=== PATIENT | female | born 1960 | race Caucasian/White ===

== ENCOUNTER 2020-06-25 09:43 | Outpatient (REF) | payer BC, SELFPAY ==
--- NOTE | ~2020-06-25 | MM_ITS ---
EXAMINATION: MM SCREENING DIGITAL BREAST TOMOSYNTHESIS, BILATERAL CLINICAL INFORMATION: Screening. Asymptomatic. The lifetime risk of breast cancer based on the Tyrer-Cuzick Model is 10%. COMPARISON: Mammography: 08/13/2016, 05/02/2015 TECHNIQUE: Digital breast tomosynthesis is performed in both the craniocaudal and mediolateral oblique views along with computer-aided detection (CAD). Synthesized 2D images are generated from the tomosynthesis. FINDINGS: The breasts are heterogeneously dense, which may obscure small masses (ACR BI-RADS breast composition Category c). There are no significant masses, abnormal calcifications, or other abnormalities. Parenchymal pattern is similar to prior exams. No significant changes. MM/MM tomosynthesis screening BI IMPRESSION: No significant changes from prior studies. ASSESSMENT: BI-RADS 1: Negative RECOMMENDATION: Routine annual mammography screening. This patient's information was entered into a reminder system with a target due date for their next mammogram.
== END 2020-06-25 09:44 | disposition home or self-care (01) ==
LOC: HO.MAMMO 09:43
PROVIDERS: PCP Internal Medicine; Visit Provider Internal Medicine
DX: Z12.31 Encounter for screening mammogram for malignant neoplasm of breast (principal)
CPT/HCPCS: 77063; 77067

== ENCOUNTER 2020-12-14 10:20 | Outpatient (REF) | payer BC, SELFPAY ==
[2020-12-14 10:23] LABS: MANUAL DIFF FLAG NO
[2020-12-14 10:55] LABS: Basophils Percent Auto 0.7 % (0-2); Eosinophils Absolute Auto 0.1 X10*3/uL (0.0-0.4); Eosinophils Percent Auto 1.5 % (0-4); Hematocrit 39.9 % (37-47); Hemoglobin 12.6 g/dl (12.0-16.0); Imm Gran Abs Auto 0.02 X10*3/uL (0.00-0.03); Imm Gran Pct Auto 0.4 % (0.0-0.4); Lymphocytes Absolute Auto 1.8 X10*3/uL (1.2-4.9); Lymphocytes Percent Auto 33.5 % (20-40); Mean Corpuscular HGB Conc 31.6 g/dl (31.0-35.0); Mean Corpuscular Hemoglobin 29.9 pg (27.0-33.0); Mean Corpuscular Volume 94.8 fL (80-98); Mean Platelet Volume 10.9 fL (9.4-12.3); Monocytes Absolute Auto 0.5 X10*3/uL (0.1-1.2); Monocytes Percent Auto 8.5 % (2-11); Neutrophils Percent Auto 55.4 % (45-73); Platelet Count 255 X10*3/uL (160-400); Red Blood Count 4.21 X10*6/uL (4.20-5.50); Red Cell Distribution Width 12.2 % (11.0-16.0); White Blood Count 5.4 X10*3/uL (4.8-10.8)
[2020-12-14 10:57] LABS: Estimated Average Glucose 97 mg/dL
[2020-12-14 11:03] LABS: Alanine Aminotransferase 20 U/L (0-31); Albumin Level 4.5 g/dL (3.5-5.0); Alkaline Phosphatase 55 U/L (39-117); Anion Gap 13 (12-20); Aspartate Amino Transferase 18 U/L (5-31); Bilirubin Total 0.5 mg/dL (0.0-1.0); Blood Urea Nitrogen 17 mg/dL (9-16); Calcium 8.9 mg/dL (8.4-10.2); Carbon Dioxide 26 mmol/L (22-29); Chloride 107 mmol/L (96-108); Cholesterol 215 mg/dL; Estimated Glomerular Filt Rate > 60; Glucose Fasting 99 mg/dL (60-99); Glucose Urine UA NEG (NEG); HDL Cholesterol 48 mg/dL; LDL Cholesterol Calculated 149 mg/dl; Leukocyte Esterase Urine NEG (NEG); Nitrite Urine NEG (NEG); Potassium 4.2 mmol/L (3.3-5.1); Sodium 142 mmol/L (135-145); Specific Gravity - Urine >= 1.030 (1.005-1.025); Total Protein 6.9 g/dL (6.5-8.0); Triglycerides 94 mg/dL; Urine Blood 1+ (NEG); Urine Ketones NEG (NEG); Urine Protein NEG (NEG-TRACE)
[2020-12-14 11:09] LABS: Appearance Urine CLEAR; Color Urine YELLOW
[2020-12-14 11:21] LABS: Bacteria Urine 1+ /LPF; RBC Urine 0-2 /HPF (0); Squamous Epithelial Cell Urine 1+ /LPF; WBC Urine 0 /HPF (0-4)
[2020-12-14 11:26] LABS: Vitamin D 25-OH Total 26.3 ng/mL (>30)
== END 2020-12-14 10:21 | disposition home or self-care (01) ==
LOC: HO.LNP 10:20
PROVIDERS: Visit Provider Internal Medicine
DX: Z00.00 Encounter for general adult medical examination without abnormal findings (principal); R73.03 Prediabetes; E55.9 Vitamin D deficiency, unspecified
CPT/HCPCS: 80053; 80061; 81001; 81003; 82306; 83036; 85025

== ENCOUNTER 2021-01-04 14:00 | Outpatient (REF) | payer BC, SELFPAY | END 2021-01-04 14:01 | disposition home or self-care (01) | LOC: HO.LNP 14:00 | PROVIDERS: Visit Provider Internal Medicine | DX: R39.15 Urgency of urination (principal) | CPT/HCPCS: 87086; 87088; 87186 ==

== ENCOUNTER 2021-04-14 10:53 | Outpatient (REF) | payer MEDICAID, SELFPAY ==
[2021-04-14 11:15] LABS: MANUAL DIFF FLAG NO
[2021-04-14 12:04] LABS: Basophils Percent Auto 0.9 % (0-2); Eosinophils Percent Auto 0.9 % (0-4); Hematocrit 39.8 % (37.0-47.0); Hemoglobin 12.8 g/dl (12.0-16.0); Imm Gran Abs Auto 0.01 X10*3/uL (0.00-0.03); Imm Gran Pct Auto 0.2 % (0.0-0.4); Lymphocytes Absolute Auto 1.3 X10*3/uL (1.2-4.9); Lymphocytes Percent Auto 29.2 % (20-40); Mean Corpuscular HGB Conc 32.2 g/dl (31.0-35.0); Mean Corpuscular Hemoglobin 30.3 pg (27.0-33.0); Mean Corpuscular Volume 94.3 fL (80.0-98.0); Mean Platelet Volume 10.9 fL (9.4-12.3); Monocytes Absolute Auto 0.4 X10*3/uL (0.1-1.2); Monocytes Percent Auto 8.6 % (2-11); Neutrophils Absolute Auto 2.8 x10*3/uL (2.0-8.3); Neutrophils Percent Auto 60.2 % (45-73); Platelet Count 243 X10*3/uL (160-400); Red Blood Count 4.22 X10*6/uL (4.20-5.50); Red Cell Distribution Width 12.7 % (11.0-16.0); White Blood Count 4.6 X10*3/uL (4.8-10.8)
[2021-04-14 12:27] LABS: Alanine Aminotransferase 16 U/L (0-31); Albumin Level 4.6 g/dL (3.5-5.0); Alkaline Phosphatase 51 U/L (39-117); Amylase 40 U/L (28-100); Anion Gap 10 (12-20); Aspartate Amino Transferase 16 U/L (5-31); Bilirubin Direct 0.2 mg/dL (0.0-0.5); Bilirubin Total 0.7 mg/dL (0.0-1.0); Blood Urea Nitrogen 14 mg/dL (9-16); C Reactive Protein 0.08 mg/dL (< or = 0.50); Calcium 9.8 mg/dL (8.4-10.2); Carbon Dioxide 29 mmol/L (22-29); Chloride 106 mmol/L (96-108); Estimated Glomerular Filt Rate > 60; Glucose Random 83 mg/dL (60-115); Lipase 33 U/L (8-78); Potassium 4.4 mmol/L (3.3-5.1); Sodium 141 mmol/L (135-145); Total Protein 7.2 g/dL (6.5-8.0)
[2021-04-14 12:47] LABS: Erythrocyte Sedimentation Rate 9 MM/HR (0-20)
[2021-04-14 13:16] LABS: Appearance Urine CLEAR; Color Urine YELLOW; Glucose Urine UA NEG (NEG); Leukocyte Esterase Urine NEG (NEG); Nitrite Urine NEG (NEG); UACC Culture Trigger NO; Urine Blood 1+ (NEG); Urine Ketones NEG (NEG); Urine Protein NEG (NEG-TRACE)
[2021-04-14 14:47] LABS: Squamous Epithelial Cell Urine 1+ /LPF; WBC Urine 0-2 /HPF (0-4)
[2021-04-20 01:31] LABS: Immunoglobulin A 206 mg/dL (70-320)
[2021-04-20 12:51] LABS: Gliadin Deamidated IgA Ab <1.0 U/mL; Gliadin Deamidated IgG Ab <1.0 U/mL; Transglutaminase Ab IgG <1.0 U/mL; Transglutaminase IgA <1.0 U/mL
[2021-04-21 10:42] LABS: Endomysial IgA Antibody Negative (Negative)
== END 2021-04-14 10:54 | disposition home or self-care (01) ==
LOC: HO.LAB 10:53
PROVIDERS: PCP Internal Medicine; Visit Provider Internal Medicine
DX: R10.31 Right lower quadrant pain (principal); K58.8 Other irritable bowel syndrome; N39.0 Urinary tract infection, site not specified
CPT/HCPCS: 36415; 80048; 80076; 81001; 82150; 82784; 83516; 83690; 85025; 85652; 86140; 86255; 86256; 87086

== ENCOUNTER 2021-06-30 11:11 | Outpatient (REF) | payer OTHER, SELFPAY ==
--- NOTE | ~2021-06-30 | US_ITS ---
EXAMINATION: US PELVIS CLINICAL INFORMATION: Right lower quadrant and pelvic pain COMPARISON: None TECHNIQUE: Ultrasound of the pelvis is performed using both transabdominal and transvaginal transducers along with Doppler. Transvaginal imaging is performed due to inadequate visualization transabdominally. FINDINGS: Uterus: The uterus is anteverted and measures 5.2 x 2.6 x 4.4 cm. The double wall endometrial thickness is 2.3 mm. There is a 0.7 x 0.3 x 0.7 cm echogenic structure within the endometrium surrounded by fluid. The uterus is smooth in contour and has normal myometrial echogenicity. No visible fibroid. Adnexa: The right ovary is not visualized due to bowel gas. Left ovary measures 1.7 x 0.8 x 0.8 cm. Volume: 0.6 mL. US/US pelvic and transvaginal IMPRESSION: 0.7 x 0.2 x 0.7 cm echogenic structure within the endometrium surrounded by fluid, that may represent a polyp versus submucosal fibroid. Recommend gynecological consult if not already performed. The right ovary is not visualized due to overlying bowel gas. Normal left ovary.
== END 2021-06-30 11:12 | disposition home or self-care (01) ==
LOC: HO.US 11:11
PROVIDERS: Visit Provider Internal Medicine
DX: R10.31 Right lower quadrant pain (principal); R10.2 Pelvic and perineal pain
CPT/HCPCS: 76830; 76856

== ENCOUNTER 2021-12-30 09:47 | Outpatient (REF) | payer OTHER, SELFPAY ==
[2021-12-30 10:05] LABS: MANUAL DIFF FLAG NO
[2021-12-30 10:27] LABS: Basophils Percent Auto 0.6 % (0-2); Eosinophils Absolute Auto 0.1 X10*3/uL (0.0-0.4); Hematocrit 39.6 % (37.0-47.0); Hemoglobin 12.9 g/dl (12.0-16.0); Imm Gran Abs Auto 0.01 X10*3/uL (0.00-0.03); Imm Gran Pct Auto 0.2 % (0.0-0.4); Lymphocytes Absolute Auto 1.7 X10*3/uL (1.2-4.9); Lymphocytes Percent Auto 34.6 % (20-40); Mean Corpuscular HGB Conc 32.6 g/dl (31.0-35.0); Mean Corpuscular Hemoglobin 30.1 pg (27.0-33.0); Mean Corpuscular Volume 92.5 fL (80.0-98.0); Mean Platelet Volume 10.4 fL (9.4-12.3); Monocytes Absolute Auto 0.4 X10*3/uL (0.1-1.2); Monocytes Percent Auto 7.9 % (2-11); Neutrophils Absolute Auto 2.7 x10*3/uL (2.0-8.3); Neutrophils Percent Auto 55.7 % (45-73); Platelet Count 201 X10*3/uL (160-400); Red Blood Count 4.28 X10*6/uL (4.20-5.50); Red Cell Distribution Width 12.2 % (11.0-16.0); White Blood Count 4.8 X10*3/uL (4.8-10.8)
[2021-12-30 11:26] LABS: Alanine Aminotransferase 16 U/L (0-31); Albumin Level 4.5 g/dL (3.5-5.0); Alkaline Phosphatase 54 U/L (39-117); Anion Gap 17 (12-20); Aspartate Amino Transferase 17 U/L (5-31); Bilirubin Total 0.6 mg/dL (0.0-1.0); Blood Urea Nitrogen 12 mg/dL (9-16); Calcium 8.7 mg/dL (8.4-10.2); Carbon Dioxide 24 mmol/L (22-29); Chloride 104 mmol/L (96-108); Cholesterol 203 mg/dL; Estimated Glomerular Filt Rate > 60; Glucose Random 98 mg/dL (60-115); HDL Cholesterol 48 mg/dL; LDL Cholesterol Calculated 135 mg/dl; Potassium 4.5 mmol/L (3.3-5.1); Sodium 140 mmol/L (135-145); Total Protein 7.1 g/dL (6.5-8.0); Triglycerides 103 mg/dL
[2021-12-30 11:31] LABS: Thyroid Stimulating Hormone 0.67 uIU/mL (0.32-4.0)
== END 2021-12-30 09:48 | disposition home or self-care (01) ==
LOC: HO.LAB 09:47
PROVIDERS: PCP Internal Medicine; Visit Provider Internal Medicine
DX: Z00.00 Encounter for general adult medical examination without abnormal findings (principal); I10 Essential (primary) hypertension; K58.9 Irritable bowel syndrome, unspecified; Z80.3 Family history of malignant neoplasm of breast
CPT/HCPCS: 36415; 80053; 80061; 82306; 84443; 85025

== ENCOUNTER 2022-06-28 08:55 | Outpatient (REF) | payer OTHER, SELFPAY ==
[2022-06-28 10:05] LABS: Cholesterol 206 mg/dL; HDL Cholesterol 46 mg/dL; LDL Cholesterol Calculated 136 mg/dl; Triglycerides 121 mg/dL
== END 2022-06-28 08:56 | disposition home or self-care (01) ==
LOC: HO.LAB 08:55
PROVIDERS: PCP Internal Medicine; Visit Provider Internal Medicine
DX: E78.00 Pure hypercholesterolemia, unspecified (principal); I10 Essential (primary) hypertension
CPT/HCPCS: 36415; 80061

== ENCOUNTER 2022-08-30 15:09 | Outpatient (REF) | payer OTHER, SELFPAY ==
--- NOTE | ~2022-08-30 | MM_ITS ---
EXAMINATION: MM SCREENING DIGITAL BREAST TOMOSYNTHESIS, BILATERAL CLINICAL INFORMATION: Screening. Asymptomatic. The lifetime risk of breast cancer based on the Tyrer-Cuzick Model is 9%. COMPARISON: Mammography: 06/25/2020, 08/13/2016, 05/02/2015 TECHNIQUE: Digital breast tomosynthesis is performed in both the craniocaudal and mediolateral oblique views along with computer-aided detection (CAD). Synthesized 2D images are generated from the tomosynthesis. FINDINGS: The breasts are heterogeneously dense, which may obscure small masses (ACR BI-RADS breast composition Category c). Breast tissue composition borders on average fibroglandular. No architectural abnormality or developing density or significant change from prior studies. There are no significant masses, abnormal calcifications, or other abnormalities. MM/MM tomosynthesis screening BI IMPRESSION: No mammographic evidence of malignancy. ASSESSMENT: BI-RADS 1: Negative RECOMMENDATION: Routine annual mammography screening. This patient's information was entered into a reminder system with a target due date for their next mammogram.
== END 2022-08-30 15:10 | disposition home or self-care (01) ==
LOC: HO.MAMMO 15:09
PROVIDERS: PCP Internal Medicine; Visit Provider Internal Medicine
DX: Z12.31 Encounter for screening mammogram for malignant neoplasm of breast (principal)
CPT/HCPCS: 77063; 77067

== ENCOUNTER 2022-09-30 07:01 | Outpatient (REF) | payer OTHER, SELFPAY ==
[2022-09-30 07:13] LABS: MANUAL DIFF FLAG NO
[2022-09-30 07:46] LABS: Basophils Percent Auto 0.6 % (0-2); Eosinophils Absolute Auto 0.1 X10*3/uL (0.0-0.4); Eosinophils Percent Auto 1.6 % (0-4); Hematocrit 39.2 % (37.0-47.0); Hemoglobin 12.6 g/dl (12.0-16.0); Imm Gran Abs Auto 0.02 X10*3/uL (0.00-0.03); Imm Gran Pct Auto 0.4 % (0.0-0.4); Lymphocytes Absolute Auto 1.5 X10*3/uL (1.2-4.9); Lymphocytes Percent Auto 30.2 % (20-40); Mean Corpuscular HGB Conc 32.1 g/dl (31.0-35.0); Mean Corpuscular Hemoglobin 30.4 pg (27.0-33.0); Mean Corpuscular Volume 94.7 fL (80.0-98.0); Mean Platelet Volume 10.4 fL (9.4-12.3); Monocytes Absolute Auto 0.4 X10*3/uL (0.1-1.2); Monocytes Percent Auto 8.7 % (2-11); Neutrophils Percent Auto 58.5 % (45-73); Platelet Count 222 X10*3/uL (160-400); Red Blood Count 4.14 X10*6/uL (4.20-5.50); Red Cell Distribution Width 12.3 % (11.0-16.0); White Blood Count 5.1 X10*3/uL (4.8-10.8)
[2022-09-30 08:14] LABS: Alanine Aminotransferase 26 U/L (0-31); Albumin Level 4.2 g/dL (3.5-5.0); Alkaline Phosphatase 54 U/L (39-117); Anion Gap 10 (12-20); Aspartate Amino Transferase 22 U/L (5-31); Bilirubin Total 0.5 mg/dL (0.0-1.0); Blood Urea Nitrogen 15 mg/dL (9-16); Calcium 8.8 mg/dL (8.4-10.2); Carbon Dioxide 27 mmol/L (22-29); Chloride 109 mmol/L (96-108); Cholesterol 134 mg/dL; Estimated Glomerular Filt Rate > 60; Glucose Random 97 mg/dL (60-115); HDL Cholesterol 50 mg/dL; LDL Cholesterol Calculated 71 mg/dl; Potassium 4.5 mmol/L (3.3-5.1); Sodium 141 mmol/L (135-145); Total Protein 6.5 g/dL (6.5-8.0); Triglycerides 68 mg/dL
== END 2022-09-30 07:02 | disposition home or self-care (01) ==
LOC: HO.LAB 07:01
PROVIDERS: PCP Internal Medicine; Visit Provider Internal Medicine
DX: I10 Essential (primary) hypertension (principal); E78.00 Pure hypercholesterolemia, unspecified
CPT/HCPCS: 36415; 80053; 80061; 85025; 86141

== ENCOUNTER 2022-11-04 11:08 | Outpatient (REF) | payer OTHER, SELFPAY ==
[2022-11-04 16:24] LABS: Urine Cytology See Pathology rpt
== END 2022-11-04 11:09 | disposition home or self-care (01) ==
LOC: HO.LAB 11:08
PROVIDERS: Visit Provider Urology
DX: R31.29 Other microscopic hematuria (principal)
CPT/HCPCS: 88112

== ENCOUNTER 2022-11-04 11:08 | Outpatient (AMB) | payer OTHER, SELFPAY ==
--- NOTE | 2022-11-04 11:21 | MHC.OFFVIS ---
Intake Intake Visit Reasons: micro hematuria Intake Note: New patient is present for microscopic hematuria Allergy: Sulfa antibiotics Blood Thinners: None Patient also states that she did in past have a lot of bladder pain. Spoke with her PCP , PCP states indicates IC. Patient started to limit her coffee intake which helped her manage her symptoms Allergies Sulfa (Sulfonamide Antibiotics) Allergy (Mild, Verified 12/21/22 13:05) rash HPI HPI Comments History of Present Illness Details Elizabeth is a pleasant female. She is a patient of Dr. Motta. She seen for the following urologic conditions - microscopic hematuria - interstitial cystitis Initial evaluation Plan for imaging with cystoscopy Has never seen blood Microscopic hematuria Prior evaluation a number of years ago Imaging - no recent Cystoscopy - no recent PFSH Medical History Colitis High cholesterol HTN (hypertension) Microscopic hematuria Surgical History History of tonsillectomy Review of Systems Const Denies chills and Denies fever(s) Card Reports no additional complaints and Denies syncope Resp Denies cough GI Denies abdominal pain and Denies heartburn Reports as per HPI and Denies change in libido Neuro Denies syncope Psych Denies change in libido Endo Denies change in libido Physical Exam Const General: cooperative, healthy appearing, comfortable and no acute distress Orientation/consciousness: patient oriented x3 HEENT Face and sinus: Yes normal facial exam Mouth: moist mucous membranes Neck Neck: Yes normal visual inspection, Yes full ROM and Yes trachea midline Chest Chest palpation & inspection: normal inspection of the chest Resp Effort & Inspection: normal respiratory effort, able to speak in complete sentences and no respiratory distress GI Inspection: Yes normal to inspection Back/Spine/Pelvis Cervical Spine: normal cervical lordosis Thoracic/Lumbar Spine: thoracic and lumbar spine normal to inspection Skin General skin exam: no rashes or lesions noted Neuro General: patient oriented x3, gait normal, tone normal and moves all extremities Extrem General: Yes normal to inspection and Yes capillary refill normal Results AMB Urinalysis, Automated UA Leukoctes 0 Ashley/uL Last Edit by KAMILLA Conte on 11/04/22 11:38 UA Nitrite Negative Last Edit by KAMILLA Conte on 11/04/22 11:38 UA Urobilinogen 0.2 mg/dL Last Edit by Leonor Wilkinson, RMA on 11/04/22 11:38 UA Protein 0 mg/dL Last Edit by Leonor Wilkinson, A on 11/04/22 11:38 UA pH 6.0 Last Edit by Leonor Wilkinson, RMA on 11/04/22 11:38 UA Blood 80 Israel/uL Last Edit by Leonor Wilkinson, RMA on 11/04/22 11:38 UA Specific Doss 1.010 Last Edit by Leonor Wilkinson, RMA on 11/04/22 11:38 UA Ketone Negative Last Edit by Leonor Wilkinson, RMA on 11/04/22 11:38 UA Bilirubin 0 mg/dL Last Edit by Leonor Wilkinson, A on 11/04/22 11:38 UA Glucose 0 mg/dL Last Edit by Leonor Wilkinson, A on 11/04/22 11:38 Results Reviewed Results Reviewed: Laboratory Last Values Urine pH (Auto) 6.0 11/04/22 11:27 Specific Doss (Auto) 1.010 11/04/22 11:27 Urine Protein (Auto) 0 mg/dL 11/04/22 11:27 Glucose (UA)(Auto) 0 mg/dL 11/04/22 11:27 Urine Ketones (Auto) Negative 11/04/22 11:27 Urine Blood (Auto) 80 [place]/uL 11/04/22 11:27 Urine Nitrite (Auto) Negative 11/04/22 11:27 Urine Bilirubin (Auto) 0 mg/dL 11/04/22 11:27 Urine Urobilinogen (Auto) 0.2 mg/dL 11/04/22 11:27 Leukocyte Esterase (Auto) 0 Ashley/uL 11/04/22 11:27 Assessment & Plan Assessment & Plan (1) Microscopic hematuria: Code(s): R31.29 - Other microscopic hematuria Plan Follow-up cystoscopy Orders: Orders AMB Urinalysis Automated 11/04/22 Z13.9 - Encounter for screening, unspecified US renal BI 1 Month N20.0 - Calculus of kidney, R31.29 - Other microscopic hematuria Urine Cytology 11/04/22 R31.29 - Other microscopic hematuria Patient Instructions: Imaging studies, laboratory and physical exam results were discussed and reviewed in detail. No major barriers to patient understanding were identified. An opportunity to ask questions regarding the treatment plan was provided. All questions were answered. The patient expressed understanding and agreement with the above treatment plan. The patient is aware they should contact our office by phone for worsening of their current condition or the appearance of new urologic symptoms. Compliance is encouraged with any medications and followup testing that is ordered. It is a privilege to participate in the urologic care of your patient. If you have any questions or concerns regarding treatment for the above conditions, or other urologic issues, please do not hesitate to contact me. The office telephone contact is [phone]. This note is constructed using voice recognition software. While every effort has been made to ensure accuracy associate professor of library media errors may have been included. Yours sincerely, Dr Bobby Gentile MD, [facility] - Urology Providers of Expert, Compassionate Care for the Genitourinary System Coding Level of Care Code New Pt Level 3 (48372) Diagnoses Microscopic hematuria R31.29
== END 2022-11-04 12:05 | disposition home or self-care (01) ==
PROVIDERS: Visit Provider Urology
DX: R31.29 Other microscopic hematuria (principal)
CPT/HCPCS: 99203

== ENCOUNTER 2022-11-24 08:57 | Outpatient (REF) | payer OTHER, SELFPAY ==
--- NOTE | ~2022-11-24 | US_ITS ---
EXAMINATION: US RETROPERITONEAL LIMITED (RENAL ONLY) CLINICAL INFORMATION: Calculus of kidney. COMPARISON: None available. TECHNIQUE: Real-time imaging of the kidneys. FINDINGS: RIGHT KIDNEY: 10.7 x 3.9 x 4.9 cm (SAG x AP x TRV). The kidney is normal in size, contour, and echogenicity. Renal cortical thickness is normal. No calculi or focal parenchymal lesions. No hydronephrosis. LEFT KIDNEY: 10.9 x 3.8 x 4.6 cm (SAG x AP x TRV). The kidney is normal in size, contour, and echogenicity. Renal cortical thickness is normal. No calculi or focal parenchymal lesions. No hydronephrosis. US/US renal BI IMPRESSION: Unremarkable study.
== END 2022-11-24 08:58 | disposition home or self-care (01) ==
LOC: HO.US 08:57
PROVIDERS: PCP Internal Medicine; Visit Provider Urology
DX: N20.0 Calculus of kidney (principal); R31.29 Other microscopic hematuria
CPT/HCPCS: 76775

== ENCOUNTER 2022-12-21 12:57 | Outpatient (AMB) | payer OTHER, SELFPAY ==
--- NOTE | 2022-12-21 13:05 | MHC.OFFVIS ---
Intake Intake Visit Reasons: 6W Cysto/US(set) Intake Note: Patient is present for Cystoscopy Urology Med: none Antibiotic Allergy: Sulfa Blood Thinner:None [facility]: [facility] C[facility] used during Procedure LOT#:[id number] EXP: 09/15/24 Allergies Sulfa (Sulfonamide Antibiotics) Allergy (Mild, Verified 12/21/22 13:05) rash HPI HPI Comments History of Present Illness Details Elizabeth is a pleasant female. She is a patient of Dr. Motta. She seen for the following urologic conditions - microscopic hematuria - interstitial cystitis Cystoscopy - touchdown area irritation, trigonal irritation Discussed food triggers Background IBS Recommend FODMAP [place] Discussed topical estrogen Microscopic hematuria Prior evaluation a number of years ago Imaging - 12/14 renal ultrasound negative Cystoscopy - 12/14 touchdown area irritation PFSH Medical History Colitis High cholesterol HTN (hypertension) Microscopic hematuria Surgical History History of tonsillectomy Review of Systems Const Denies chills and Denies fever(s) Card Reports no additional complaints and Denies syncope Resp Denies cough GI Denies abdominal pain and Denies heartburn Reports as per HPI and Denies change in libido Neuro Denies syncope Psych Denies change in libido Endo Denies change in libido Physical Exam Const General: cooperative, healthy appearing, comfortable and no acute distress Orientation/consciousness: patient oriented x3 HEENT Face and sinus: Yes normal facial exam Mouth: moist mucous membranes Neck Neck: Yes normal visual inspection, Yes full ROM and Yes trachea midline Chest Chest palpation & inspection: normal inspection of the chest Resp Effort & Inspection: normal respiratory effort, able to speak in complete sentences and no respiratory distress GI Inspection: Yes normal to inspection Back/Spine/Pelvis Cervical Spine: normal cervical lordosis Thoracic/Lumbar Spine: thoracic and lumbar spine normal to inspection Skin General skin exam: no rashes or lesions noted Neuro General: patient oriented x3, gait normal, tone normal and moves all extremities Extrem General: Yes normal to inspection and Yes capillary refill normal Office Procedures Cystoscopy Consent Discussed risk and benefit or proposed procedure with the patient. Information consent for procedure given to the patient. Discussed technical aspects, risks, benefits and alternatives in full. Addressed all of the patient's questions and concerns regarding the procedure. The patient demonstrated knowledge and understanding. They wish to proceed with this procedure. Preparation The patient was prepped in the usual manner. A experimental preflight mechanic was present and in the room. Genitalia was prepped with betadine solution in a sterile manner. Lidocaine Jelly 2% was placed into the urethra and 16Fr flexible Olympus cystoscope was inserted into the meatus after adequate lubrication. Procedure Meatus vaginal atrophy Urethra normal Bladder examination with retroflexion of cystoscope Bladder Orifices normal shape and position Trigone irritation Bladder Capacity medium Trabeculations - Cellule Formation - Diverticulum Formation - Mucosal Erythema touchdown area irritation Bladder Tumor - 28250-Cyufupsjum DISPOSABLE SCOPE URO-G FLEXIBLE SCOPE Procedure code (CPT) selection complete Office Meds lidocaine HCl Performing Provider: Bobby Gentile MD Administered by: Ceci Mitchell RN on 12/21/22 13:27 Dose Route Admin Location Lot Number Expiration Date [place] Serology Technician 10 mL intra-urethral nitrofurantoin monohyd/m-cryst 100 mg Performing Provider: Bobby Gentile MD Administered by: Ceci Mitchell RN on 12/21/22 13:27 Dose Route Admin Location Lot Number Expiration Date [facility] Serology Technician 100 mg PO naproxen Performing Provider: Bobby Gentile MD Administered by: Ceci Mitchell RN on 12/21/22 13:27 Dose Route Admin Location Lot Number Expiration Date N[place] Serology Technician 500 mg PO Results AMB Urinalysis, Automated UA Leukoctes 0 Ashley/uL Last Edit by KAMILLA Conte on 12/21/22 13:22 UA Nitrite Negative Last Edit by KAMILLA Conte on 12/21/22 13:22 UA Urobilinogen 0.2 mg/dL Last Edit by KAMILLA Conte on 12/21/22 13:22 UA Protein 0 mg/dL Last Edit by KAMILLA Conte on 12/21/22 13:22 UA pH 7.0 Last Edit by KAMILLA Conte on 12/21/22 13:22 UA Blood 80 [place]/uL Last Edit by KAMILLA Conte on 12/21/22 13:22 UA Specific Trevor 1.010 Last Edit by KAMILLA Conte on 12/21/22 13:22 UA Ketone Negative Last Edit by Leonor Wilkinson RMA on 12/21/22 13:22 UA Bilirubin 0 mg/dL Last Edit by Leonor Wilkinson, RMA on 12/21/22 13:22 UA Glucose 0 mg/dL Last Edit by Leonor Wilkinson, RMA on 12/21/22 13:22 Results Reviewed Results Reviewed: Laboratory Last Values Urine pH (Auto) 7.0 12/21/22 13:13 Specific Trevor (Auto) 1.010 12/21/22 13:13 Urine Protein (Auto) 0 mg/dL 12/21/22 13:13 Glucose (UA)(Auto) 0 mg/dL 12/21/22 13:13 Urine Ketones (Auto) Negative 12/21/22 13:13 Urine Blood (Auto) 80 [place]/uL 12/21/22 13:13 Urine Nitrite (Auto) Negative 12/21/22 13:13 Urine Bilirubin (Auto) 0 mg/dL 12/21/22 13:13 Urine Urobilinogen (Auto) 0.2 mg/dL 12/21/22 13:13 Leukocyte Esterase (Auto) 0 Ashley/uL 12/21/22 13:13 Assessment & Plan Assessment & Plan (1) Microscopic hematuria: Code(s): R31.29 - Other microscopic hematuria Plan Twelve month follow-up Orders: Orders Urine Cytology Today R31.29 - Other microscopic hematuria AMB Cystoscopy Today R31.29 - Other microscopic hematuria AMB Urinalysis Automated Today Z13.9 - Encounter for screening, unspecified Patient Instructions: Imaging studies, laboratory and physical exam results were discussed and reviewed in detail. No major barriers to patient understanding were identified. An opportunity to ask questions regarding the treatment plan was provided. All questions were answered. The patient expressed understanding and agreement with the above treatment plan. The patient is aware they should contact our office by phone for worsening of their current condition or the appearance of new urologic symptoms. Compliance is encouraged with any medications and followup testing that is ordered. It is a privilege to participate in the urologic care of your patient. If you have any questions or concerns regarding treatment for the above conditions, or other urologic issues, please do not hesitate to contact me. The office telephone contact is [phone]. This note is constructed using voice recognition software. While every effort has been made to ensure accuracy pig lead melter helper errors may have been included. Yours sincerely, Dr Bobby Gentile MD, [facility] - Urology Providers of Expert, Compassionate Care for the Genitourinary System Coding Level of Care Code Est Pt Level 3 (50001) Diagnoses Microscopic hematuria R31.29 CPT Codes Cystoscopy - CPT: 17072-Yngcpmtyow ([id number]) Cystoscopy - CPT: DISPOSABLE SCOPE URO-G FLEXIBLE SCOPE ([id number])
== END 2022-12-21 13:50 | disposition home or self-care (01) ==
PROVIDERS: PCP Internal Medicine; Visit Provider Urology
DX: R31.29 Other microscopic hematuria (principal); Z13.9 Encounter for screening, unspecified
CPT/HCPCS: 52000

== ENCOUNTER 2022-12-21 12:57 | Outpatient (REF) | payer OTHER, SELFPAY ==
[2022-12-21 17:16] LABS: Urine Cytology See Pathology rpt
== END 2022-12-21 12:58 | disposition home or self-care (01) ==
LOC: HO.LAB 12:57
PROVIDERS: PCP Internal Medicine; Visit Provider Urology
DX: R31.29 Other microscopic hematuria (principal)
CPT/HCPCS: 52000; 81003; 88112; C1747

== ENCOUNTER 2023-07-11 09:25 | Outpatient (REF) | payer OTHER, SELFPAY ==
[2023-07-11 10:01] LABS: Basophils Percent Auto 0.6 % (0-2); Eosinophils Absolute Auto 0.1 X10*3/uL (0.0-0.4); Eosinophils Percent Auto 1.6 % (0-4); Hematocrit 39.7 % (37.0-47.0); Hemoglobin 13.2 g/dl (12.0-16.0); Imm Gran Abs Auto 0.01 X10*3/uL (0.00-0.03); Imm Gran Pct Auto 0.2 % (0.0-0.4); Lymphocytes Absolute Auto 1.5 X10*3/uL (1.2-4.9); Lymphocytes Percent Auto 31.5 % (20-40); MANUAL DIFF FLAG NO; Mean Corpuscular HGB Conc 33.2 g/dl (31.0-35.0); Mean Corpuscular Hemoglobin 30.6 pg (27.0-33.0); Mean Corpuscular Volume 91.9 fL (80.0-98.0); Mean Platelet Volume 10.2 fL (9.4-12.3); Monocytes Absolute Auto 0.4 X10*3/uL (0.1-1.2); Monocytes Percent Auto 8.2 % (2-11); Neutrophils Absolute Auto 2.8 x10*3/uL (2.0-8.3); Neutrophils Percent Auto 57.9 % (45-73); Platelet Count 217 X10*3/uL (160-400); Red Blood Count 4.32 X10*6/uL (4.20-5.50); Red Cell Distribution Width 12.4 % (11.0-16.0); White Blood Count 4.9 X10*3/uL (4.8-10.8)
[2023-07-11 11:04] LABS: Alanine Aminotransferase 21 U/L (0-31); Albumin Level 4.4 g/dL (3.5-5.0); Anion Gap 13 (12-20); Aspartate Amino Transferase 18 U/L (5-31); Bilirubin Total 0.6 mg/dL (0.0-1.0); Blood Urea Nitrogen 15 mg/dL (9-16); Calcium 8.9 mg/dL (8.4-10.2); Carbon Dioxide 25 mmol/L (22-29); Chloride 108 mmol/L (96-108); Estimated Glomerular Filt Rate > 60; Glucose Random 102 mg/dL (60-115); Potassium 4.1 mmol/L (3.3-5.1); Sodium 142 mmol/L (135-145); Total Protein 7.1 g/dL (6.5-8.0); Triglycerides 71 mg/dL (<150)
[2023-07-11 11:05] LABS: Alkaline Phosphatase 62 U/L (39-117); Cholesterol 140 mg/dL (<200); HDL Cholesterol 57 mg/dL (>40); LDL Cholesterol Calculated 69 mg/dL (<100)
== END 2023-07-11 09:26 | disposition home or self-care (01) ==
LOC: HO.LAB 09:25
PROVIDERS: PCP Internal Medicine; Visit Provider Internal Medicine
DX: Z00.00 Encounter for general adult medical examination without abnormal findings (principal); E78.00 Pure hypercholesterolemia, unspecified; I10 Essential (primary) hypertension
CPT/HCPCS: 36415; 80053; 80061; 85025

== ENCOUNTER 2023-09-01 15:29 | Outpatient (REF) | payer MEDICARE, MEDICAID, SELFPAY | END 2023-09-01 15:30 | disposition home or self-care (01) | LOC: HO.MAMMO 15:29 | PROVIDERS: PCP Internal Medicine; Visit Provider Internal Medicine | DX: Z12.31 Encounter for screening mammogram for malignant neoplasm of breast (principal) | CPT/HCPCS: 77063; 77067 ==

== ENCOUNTER → 2023-09-01 15:45 | Outpatient (BNV) | payer MEDICARE, MEDICAID, SELFPAY | PROVIDERS: PCP Internal Medicine; Visit Provider Radiology Diagnostic Radiology | DX: Z12.31 Encounter for screening mammogram for malignant neoplasm of breast (principal) | CPT/HCPCS: 77063; 77067 ==

== ENCOUNTER 2024-08-26 07:35 | Day surgery (SDC) | payer MEDICARE, MEDICAID, SELFPAY ==
--- OUTSIDE RECORDS SUMMARY | 2024-07-24 17:02 | XMS_ITS | Patient Health Record ---
Author Organization [facility] Address [address] [place] [address] Care Team Providers Care Commercial Credit Lead Name Role Phone Lolly Motta Primary Care Provider Unavailab [employer] Unavailable [phone] Allergies Allergen (clinical drug ingredient) Drug/Non Drug Allergy documented on EMR Reaction Allergy Type Onset Date Status Sulfacet-R Unknown Drug Allergy Active Reason For Referral No Information Medications Medication SIG (Take, Route, Fr equency, Duration) Notes Start Date End Date Status Dicyclomine HCl 10 MG 1-2 Orally Q 4-6 h ours prn abdominal discomfort/cramps/bloating for 30 day(s) Active Multi Adult Gummies - as directed Orally Active Align 4 MG as directed Orally Active Estradiol 10 MCG _insert 1 TABLET VAG INALLY 2 TIMES A WEEK Diagnosis Unavailable Vaginal for 14 Activ e Immunizations Vaccine Route Administration Date Status Comme nts Influenza Unknown 02/22/2021 Administered Social History Alcohol Screen Question Answer Notes Did you have a drink containing alcohol in the p ast year? No Points 0 Interpretation Negative Section Notes: Nonsmoker; no sig. alcohol Nonsmoker; no sig. alcohol Nonsmoker; no sig. alcohol Nonsmoker; no sig. alcohol Problems Problem Type SNOMED Code ICD Code Onset Dates Problem Status W/U Status Risk Notes Problem 507954358 Encounter for screening for malignant neoplasm of colon (Z12.11) Active confirmed Problem 56420601 Right lower quadrant pain (R10.31) Active confirmed Problem 72622373 Irritable bowel syndrome without diarrhea (K58.9) Active confirmed Problem 29768618 Other irritable bowel syndrome (K58.8) Active confirmed Problem 65213708 Pelvic pain (R10.2) Active confirmed Problem 32957717 Urinary tract infection without hematuria, site unspecified (N39.0) Active confirmed Plan Of Treatment Pending Test Test Name Order Date CHEM 7 PROFILE 04/13/2021 LIVER PROFILE 04/13/2021 AMYLASE 04/13/2021 LIPASE 04/13/2021 CRP 04/13/2021 CBC w DIFF 04/13/2021 SED RATE (ESR) 04/13/2021 URINALYSIS + MICROSCOPIC, CLEAN CATCH CELIAC PANEL #10 04/13/2021 ENDOMYSIAL IGA 06/29/2012 TRANSGLUTAMINASE AB IGA 06/29/2012 TRANSGLUTAMINASE AB IGG 06/29/2012 US pelvic complete 04/13/2021 Future Test Test Name Order Date COLONOSCOPY 01/28/2015 Insurance Providers Payer Name Payer Address Payer Phone Subscriber Number Group Number Insured Name Patient Relationship to Insured Coverage Start Date Coverage End Date HMO BLUE BCBS PROF[employer] L CLAIMS [address] [place] [address] [id number] GUSTAVO FLAHERTY Self - patient is the insured [employer] [facility] [address] [address] [place], [place] [phone] [id number] GUSTAVO FLAHERTY Self - patient is the insured [place] [address] [place] [address] [id number] GUSTAVO FLAHERTY Self - patient is the insured 1 Medical (General) History Medical History History ICD Code Asthma in association with a URI--uses i nhalers prn Denies VA,DM,CVA,renal disease Irritable bowel syndrome/lac tose intolerance-neg. celiac disease labs in 2012 Negative screening colonoscopy in 5 E. coli UTI in December of 2020 Surgical History Surgery Date(Month/Year) Tonsillectomy [place] teeth
--- OUTSIDE RECORDS SUMMARY | 2024-07-24 17:02 | XMS_ITS | Clinical Summary ---
Author Organization [employer] Address [address] [place] [address] [address] [place] [address] Care Team Providers Care Furniture Finisher Apprentice Name Role Phone Unavailable Primary Care Provider Unavailabl e Allergies Active Allergy Reactions Criticality Noted Date Comments Sulfa Antibiotics Hives 10/13/2022 Medications atorvastatin (Lipitor) 10 MG tablet Take 10 mg by mouth at bedtime. 10/03/2022 Active Social History Tobacco Use Types Packs/Day Years Used Date Smoking Tobacco: Never Smokeless Tobacco: Never Tobacco Cessation:Counseling Given: Not Answered Comments Unknown Sex and Gender Information Value Date Recorded Sex Assigned at Female 03/23/2022 2:46 PM EST Legal Sex Female 2:46 PM EST Gender Identity Choose not to disclose 2:46 PM EST Sexual Orientation Choose not to disclose 2021 2:46 PM EST Last Filed Vital Signs Vital Sign Reading Time Taken Comments Blood Pressure 137/62 10/18/2022 11:11 AM EDT Pulse 76 10/18/2022 11:11 AM EDT Temperature - - Respiratory Rate - - Oxygen Saturation - - Inhaled Oxygen Concentration - - Weight - - Height - - Body Mass Index - - Plan of Treatment Health Maintenance Due Date Last Done Comments CT Colonography 1958 Colonoscopy 1958 Colorectal Cancer Screening 1958 Depression Screening 1958 FIT DNA/Cologuard 1958 FIT 1958 FOBT 1958 SDOH Screening 1958 Sigmoidoscopy 1958 Alcohol/Substance Use Screening 1970 Hepatitis C Screening 1976 DTaP/Tdap/Td Vaccines (1 - Tdap) 1977 Pap Smear 08/31/1979 Cervical Cancer Screening 1988 HPV/Cotest 1988 Mammogram 1998 Pneumococcal Vaccine: 50+ Years (2 of 2 - PCV) 12/09/2020 12/10/2019 Dental Oral Exam 04/20/2023 10/18/2022, 10/13/2022 Dental Prophylaxis 04/20/2023 10/18/2022 Dental X-Ray: Bitewings 10/15/2023 10/13/2022 Tobacco Screening 10/19/2023 10/18/2022 COVID-19 Vaccine ( season) 2023 01/24/2022, 08/24/2021, 03/29/2021, Additional history exists Influenza Vaccine (#1) 2023 , 03/16/2021, 02/22/2021, Additional history exists Dental X-Ray: Full Mouth 10/14/2025 10/13/2022 RSV Patients and Patients Aged 60 years or older (1 - 1-dose 75+ series) 2033 Zoster Vaccines Completed 06/18/2020, 12/26/2019 HIB Vaccines Aged Out No longer eligi ble based on patient's age to complete this topic HPV Vaccines Aged Out No longer eligi ble based on patient's age to complete this topic Hepatitis A Vaccines Aged Out No long er eligible based on patient's age to complete this topic Hepatitis B Vaccines Aged Out No long er eligible based on patient's age to complete this topic IPV Vaccines Aged Out No longer eligi ble based on patient's age to complete this topic Meningococcal Vaccine Aged Out No edilberto favio eligible based on patient's age to complete this topic RSV under 20 months Aged Out No longe r eligible based on patient's age to complete this topic Rotavirus Vaccines Aged Out No longer eligible based on patient's age to complete this topic Procedures Procedure Name Priority Date/Time Associated Diagnosis Comments PROPHYLAXIS - ADULT Routine 10/18/2022 1 1:00 AM EDT PERIODIC ORAL EVALUATION - ESTABLISHED PATIENT Routine 10/18/2022 11:00 AM EDT INTRAORAL - COMPLETE SERIES OF RADIOGRAPHIC IMAGES Routine 10/13/2022 1:00 PM EDT Encounter for dental examination from Last 3 Months or Most Recently Relevant to Health Maintenance Insurance [facility] MEDICAID STAND ADULT
[2024-08-19 07:16] VITALS: BMI 28.2
--- NOTE | 2024-08-22 10:41 | P.CONAN_ITS ---
HPI - Anesthesia Eval Consult details Narrative: 63yo F for Right Cataract Extraction IOL Insertion PMFSH Active Problems Active Problems: All Active Problems Microscopic hematuria (Acute) Past Medical History Medical History (Updated 08/19/24 @ 07:05 by Natalie Madrid RN) IBS (irritable bowel syndrome) High cholesterol Microscopic hematuria Colitis HTN (hypertension) Surgical History Surgical History (Updated 08/19/24 @ 07:06 by Natalie Madrid RN) History of surgery of uterus H/O colonoscopy History of tonsillectomy Social History Social History Are you a primary home health care physician to a significant other at home: No Patient Tobacco Use Status: Never used Tobacco Substance Use Frequency: Occasionally Are you DNR?: No Advance Directives: No Advance Directives Information Provided: No Advance Directives on File: No Patient : No : No Meds Allergies Allergy/AdvReac Type Severity Reaction Status Date / Time Sulfa (Sulfonamide Allergy Mild rash Verified 12/21/22 13:05 Antibiotics) codeine Allergy Vomiting Verified 08/19/24 07:04 Home Medications ?Medication ?Instructions ?Recorded ?Confirmed ?Last Taken ?Type atorvastatin 10 mg tablet 10 mg PO BEDTIME 11/04/22 08/19/24 Unknown History Bifidobacterium longum 10 million 10 cell PO DAILY 08/19/24 08/19/24 Unknown History cell capsule (Align (B.longum)) losartan 50 mg tablet 50 mg PO DAILY 08/19/24 08/19/24 Unknown History Exam Height,Weight and Vital Signs: Height 5 ft 6 in Weight 79.379 kg Assessment and Plan Assessment Anesthesia Assessment: Chart Reviewed
[2024-08-26] MEDS: Tropicamide 1 % Ophth Sol 3 ML BTL 1 DROP EYE-RIGHT ×3 (08:46→08:54)
[2024-08-26] MEDS: Ketorolac Tromethamine 0.5% Op 5 ML DROPS 1 DROP EYE-RIGHT ×3 (08:46→08:54)
[2024-08-26] MEDS: Lactated Ringers 500 ML 50 ML IV (08:46)
[2024-08-26] MEDS: Tetracaine HCl/PF 0.5% Oph Sol 4 ML DROPS 1 DROP EYE-RIGHT (08:46)
[2024-08-26] MEDS: Cyclopentolate 1 % Ophth Sol 2 ML DRPBTL 1 DROP EYE-RIGHT ×3 (08:47→08:54)
[2024-08-26] MEDS: Phenylephrine HCL 2.5% Oph SoL 2 ML BOTTLE 1 DROP EYE-RIGHT ×3 (08:47→08:54)
[2024-08-26 08:58] VITALS: BP 150/71; PULSE 55; RESP 18; TEMP 36.8; O2SAT 98
--- NOTE | 2024-08-26 09:30 | P.CONAN_ITS ---
[facility] Active Problems Active Problems: All Active Problems Microscopic hematuria (Acute) Past Medical History Medical History IBS (irritable bowel syndrome) High cholesterol Microscopic hematuria Colitis HTN (hypertension) Functional capacity: independent ambulation Patient : No Family History Family history of problems with anesthesia: No Surgical History Surgical History History of surgery of uterus H/O colonoscopy History of tonsillectomy History of Problems with Anesthesia: Yes Social History Social History Are you a primary director career services to a significant other at home: No Patient Tobacco Use Status: Never used Tobacco Use of substances other than those prescribed or required for medical reasons: Yes Substance Use Type Other:: history of illicit drug use Substance Use Frequency: Occasionally Are you DNR?: No Advance Directives: No Advance Directives Information Provided: Yes Advance Directives on File: No Patient : No : No Meds Allergies Allergy/AdvReac Type Severity Reaction Status Date / Time Sulfa (Sulfonamide Allergy Mild rash Verified 08/26/24 09:02 Antibiotics) codeine Allergy Vomiting Verified 08/26/24 09:02 Active Medications: Current Medications Lactated Ringer's (Lr) 500 mls @ 50 mls/hr IV .Q10H LAURA Stop: 08/26/24 18:44 Last Admin: 08/26/24 08:46 Dose: 50 mls/hr Povidone Iodine (Povidone Iodine 5 % [facility] Sol 30 Ml Bottle) 1 appl EYE-RIGHT PREOP PRN PRN Reason: Pre-Op Surgical Implant Prophy Home Medications ?Medication ?Instructions ?Recorded ?Confirmed ?Last Taken ?Type atorvastatin 10 mg tablet 10 mg PO BEDTIME 11/04/22 08/19/24 Unknown History Bifidobacterium longum 10 million 10 cell PO DAILY 08/19/24 08/19/24 Unknown History cell capsule (Align (B.longum)) losartan 50 mg tablet 50 mg PO DAILY 08/19/24 08/19/24 Unknown History Exam Height,Weight and Vital Signs: Height 5 ft 6 in Weight 79.379 kg Last Vital Signs Temp 98.2 F 08/26/24 08:58 Pulse 55 08/26/24 08:58 Resp 18 08/26/24 08:58 BP 150/71 H 08/26/24 08:58 Pulse Ox 98 08/26/24 08:58 O2 Del Method Room Air 08/26/24 08:58 Airway Mallampati Class: II TM Dist: >3cm Neck ROM: Full Heart: RRR Lungs: CTA Assessment and Plan Assessment Anesthesia Assessment: Anesthesia Plan Discussed and Chart Reviewed Final Anesthetic Review Family History of Problems with Anesthesia: No History of Problems with Anesthesia: Yes NPO: Yes ASA Class: II Final Preanesthetic Review: Meds/Allgs Chart Reviewed, Consent Obtained/Reviewed and Anes Risks/Benef Reviewed Patient Risk: Low Procedure Risk: Low Anesthetic Plan Anesthetic Plan: MAC: Disposition: Standard PACU
--- NOTE | 2024-08-26 09:42 | P.PCNO_ITS ---
Ophthalmology Procedure Procedure Date of Service: 08/26/24 Ophthalmology Viscoelastic: Healon Duet Dual Pack Pro Ophthalmology Lenses: IOL Acrysof MP - MA60AC (19.5) Procedure Notes: PREOPERATIVE DIAGNOSIS: Decreased visual acuity right eye secondary to cataract POSTOPERATIVE DIAGNOSIS: Same PROCEDURE: Right cataract extraction with intraocular lens insertion SURGEON: Dustin Soto M.D. ANESTHESIA: Topical/MAC ESTIMATED BLOOD LOSS: None COMPLICATIONS: None After obtaining informed consent, the patient was brought to the operating room suite and placed in the supine position. After adequate sedation per anesthesia, topical drops of Tetracaine were given to the right eye. The eye was then prepped and draped in the usual sterile fashion. The operating room microscope was then positioned over the operative eye and a lid speculum placed. A paracentesis was created. Viscoelastic was then instilled into the anterior chamber. A three plane incision was then created temporally, utilizing a 2.85 mm keratome. Capsulotomy forceps were then utilized to create a circular tear capsulotomy. Hydrodissection and hydrodelineation were carried out until adequate mobilization of the nucleus occurred. Phacoemulsification was then utilized to remove the dense central nu cleus followed by removal of the cortical material utilizing the automated aspiration irrigation unit. Viscoelastic was instilled into the posterior capsular bag followed by placement of a posterior chamber intraocular lens without difficulty. The residual Viscoelastic was then removed utilizing the automated IA machine. The wound was checked and found to be watertight. The patient tolerated the procedure well and the lid speculum was removed. Intracameral injection of Vigamox 0.1 mL followed by a subtenon injection of Kenalog-40 0.2 mL were administered. The patient will be seen in the a.m.
--- NOTE | 2024-08-26 09:42 | MHC.SHP ---
Pre-Procedural Eval Section A - 24 Hr Update-Section A only Date of Service: 08/26/24 The patient is an INPATIENT: No The patient has been examined within 24 hours of the surgical procedure. The History & Physical has been completed within 30 days and I have reviewed it.: No Section B - Complete if H&P > 30 days Chief Complaint: Age-related nuclear cataract, right eye Allergies: Allergies Allergy/AdvReac Type Severity Reaction Status Date / Time Sulfa (Sulfonamide Allergy Mild rash Verified 08/26/24 09:02 Antibiotics) codeine Allergy Vomiting Verified 08/26/24 09:02 Plan Diagnosis/Plan: Unchanged I have reviewed the history and physical and performed a pertinent physical examination on my patient. No changes have occurred unless specified. Time Spent With Patient Time: Total time managing care of this patient today ____ minutes.
[2024-08-26 10:13] VITALS: BP 116/98; PULSE 66; RESP 18; TEMP 36.1; O2SAT 97
== END 2024-08-26 10:15 | disposition home or self-care (01) ==
PROVIDERS: PCP Internal Medicine; Visit Provider Ophthalmology
PROC: (CPT 66985; principal; 2024-08-26 10:00)
DX: H25.11 Age-related nuclear cataract, right eye (principal); H52.4 Presbyopia; H35.09 Other intraretinal microvascular abnormalities; H18.413 Arcus senilis, bilateral; H35.363 Drusen (degenerative) of macula, bilateral; I10 Essential (primary) hypertension; E78.00 Pure hypercholesterolemia, unspecified; Z79.899 Other long term (current) drug therapy; Z88.2 Allergy status to sulfonamides; Z88.5 Allergy status to narcotic agent
CPT/HCPCS: 66984; J2250; J3010; J3301; V2630

== ENCOUNTER 2024-09-04 08:04 | Outpatient (REF) | payer MEDICARE, MEDICAID, SELFPAY ==
--- OUTSIDE RECORDS SUMMARY | 2024-09-04 08:08 | XMS_ITS | Patient Health Record ---
Author Organization [facility] Address [address] [place] [address] Care Team Providers Care Aircraft Delivery Checker Name Role Phone OscarclaraLolly Primary Care Provider Unavailab Scott [employer] Unavailable [phone] Allergies Allergen (clinical drug ingredient) Drug/Non Drug [...] Problem Status W/U Status Risk Notes Problem [id number] Encounter for screening for malignant neoplasm of colon (Z12.11) Active confirmed Problem 15944328 Right lower quadrant pain (R10.31) Active confirmed Problem 89032526 Irritable bowel syndrome without diarrhea (K58.9) Active confirmed Problem 67882139 Other irritable bowel syndrome (K58.8) Active confirmed Problem 56577781 Pelvic pain (R10.2) Active confirmed Problem 71266145 Urinary tract infection without hematuria, site unspecified [...] BLUE BCBS PROFESSIONA L CLAIMS [address] [place] [address] [id number] GUSTAVO FLAHERTY Self - patient is the insured [employer] [address] [address] [place], [place] [id number] GUSTAVO FLAHERTY Self - patient is the insured [place] [address] [place] [address] [id number] GUSTAVO FLAHERTY Self - patient is the insured 1 Medical (General) History Medical History History ICD Code Asthma in association with a URI--uses i nhalers prn Denies [place],DM,CVA,renal disease Irritable bowel syndrome/lac tose intolerance-neg. celiac disease labs in 2012 Negative screening colonoscopy in 5 E. coli UTI in December of 2020 Surgical History Surgery Date(Month/Year) Tonsillectomy [place] teeth
[2024-09-04 08:15] LABS: MANUAL DIFF FLAG NO
[2024-09-04 08:29] LABS: Basophils Percent Auto 0.5 % (0-2); Eosinophils Absolute Auto 0.1 X10*3/uL (0.0-0.4); Eosinophils Percent Auto 1.6 % (0-4); Hematocrit 40.8 % (37.0-47.0); Hemoglobin 13.1 g/dl (12.0-16.0); Imm Gran Abs Auto 0.01 X10*3/uL (0.00-0.03); Imm Gran Pct Auto 0.2 % (0.0-0.4); Lymphocytes Absolute Auto 1.4 X10*3/uL (1.2-4.9); Lymphocytes Percent Auto 25.1 % (20-40); Mean Corpuscular HGB Conc 32.1 g/dl (31.0-35.0); Mean Corpuscular Hemoglobin 30.3 pg (27.0-33.0); Mean Corpuscular Volume 94.4 fL (80.0-98.0); Mean Platelet Volume 10.6 fL (9.4-12.3); Monocytes Absolute Auto 0.5 X10*3/uL (0.1-1.2); Monocytes Percent Auto 8.9 % (2-11); Neutrophils Absolute Auto 3.6 x10*3/uL (2.0-8.3); Neutrophils Percent Auto 63.7 % (45-73); Platelet Count 222 X10*3/uL (160-400); Red Blood Count 4.32 X10*6/uL (4.20-5.50); Red Cell Distribution Width 12.6 % (11.0-16.0); White Blood Count 5.6 X10*3/uL (4.8-10.8)
[2024-09-04 09:17] LABS: Alanine Aminotransferase 27 U/L (0-31); Albumin Level 4.5 g/dL (3.5-5.0); Alkaline Phosphatase 57 U/L (39-117); Anion Gap 14 (12-20); Aspartate Amino Transferase 20 U/L (5-31); Bilirubin Total 0.5 mg/dL (0.0-1.0); Blood Urea Nitrogen 26 mg/dL (9-16); Calcium 9.2 mg/dL (8.4-10.2); Carbon Dioxide 26 mmol/L (22-29); Chloride 108 mmol/L (96-108); Cholesterol 140 mg/dL (<200); Estimated Glomerular Filt Rate > 60; Glucose Random 103 mg/dL (60-115); HDL Cholesterol 56 mg/dL (>40); LDL Cholesterol Calculated 70 mg/dL (<100); Potassium 4.6 mmol/L (3.3-5.1); Sodium 143 mmol/L (135-145); Total Protein 7.4 g/dL (6.5-8.0); Triglycerides 72 mg/dL (<150)
== END 2024-09-04 08:05 | disposition home or self-care (01) ==
LOC: HO.LAB 08:04
PROVIDERS: PCP Internal Medicine; Visit Provider Internal Medicine
DX: E78.00 Pure hypercholesterolemia, unspecified (principal); I10 Essential (primary) hypertension; M51.16 Intervertebral disc disorders with radiculopathy, lumbar region; Z68.26 Body mass index [BMI] 26.0-26.9, adult
CPT/HCPCS: 36415; 80053; 80061; 85025

== ENCOUNTER 2024-09-06 13:46 | Outpatient (REF) | payer MEDICARE, MEDICAID, SELFPAY ==
--- OUTSIDE RECORDS SUMMARY | 2024-09-06 13:48 | XMS_ITS | Clinical Summary ---
Author Organization [employer] Address [address] [place] [address] [address] [place] [address] Care Team Providers Care Metal Grinder Name Role Phone Unavailable Primary Care Provider [...] 1976 DTaP/Tdap/Td Vaccines (1 - Tdap) 1977 Mammogram 1998 Pneumococcal Vaccine: 50+ Years (2 [...] patient's age to complete this topic Meningococcal B Vaccine Aged Out No l onger eligible based on patient's age to complete [...] Most Recently Relevant to Health Maintenance Insurance [facility] MEDICAID STAND ADULT
--- OUTSIDE RECORDS SUMMARY | 2024-09-06 13:48 | XMS_ITS | Patient Health Record ---
Author Organization [facility] Address [address] [place] [address] Care Team Providers Care Wind Tunnel Engineer Name Role Phone OscarclaraLolly Primary Care Provider Unavailab Scott [employer] Unavailable [phone] Allergies Allergen (clinical drug ingredient) Drug/Non Drug [...] Problem Status W/U Status Risk Notes Problem [id number] Encounter for screening for malignant neoplasm of colon (Z12.11) Active confirmed Problem 81425790 Right lower quadrant pain (R10.31) Active confirmed Problem 56869844 Irritable bowel syndrome without diarrhea (K58.9) Active confirmed Problem 31140217 Other irritable bowel syndrome (K58.8) Active confirmed Problem 76287460 Pelvic pain (R10.2) Active confirmed Problem 89386018 Urinary tract infection without hematuria, site unspecified [...] Insured Coverage Start Date Coverage End Date MEDICARE OF [place] [address] [facility] [address] [id number] GUSTAVO FLAHERTY Self - patient is the insured [facility] [employer] [facility] [address] [address] [place], [place] [id number] GUSTAVO FLAHERTY Self - patient is the insured MEDICAID OF [facility] [address] [place] [address] [id number] GUSTAVO FLAHERTY Self - patient is the insured 1 Medical (General) History Medical History History ICD Code Asthma in association with a URI--uses i nhalers prn Denies [place],DM,CVA,renal disease Irritable bowel syndrome/lac tose intolerance-neg. celiac disease labs in 2012 Negative screening colonoscopy in 5 E. coli UTI in December of 2020 Surgical History Surgery Date(Month/Year) Tonsillectomy [place] teeth
== END 2024-09-06 13:47 | disposition home or self-care (01) ==
LOC: HO.MAMMO 13:46
PROVIDERS: PCP Internal Medicine; Visit Provider Internal Medicine
DX: Z12.31 Encounter for screening mammogram for malignant neoplasm of breast (principal)
CPT/HCPCS: 77063; 77067

== ENCOUNTER → 2024-09-06 14:00 | Outpatient (BNV) | payer MEDICARE, MEDICAID, SELFPAY | PROVIDERS: PCP Internal Medicine; Visit Provider Internal Medicine | DX: Z12.31 Encounter for screening mammogram for malignant neoplasm of breast (principal) | CPT/HCPCS: 77063; 77067 ==

== ENCOUNTER 2024-09-09 07:10 | Day surgery (SDC) | payer MEDICARE, MEDICAID, SELFPAY ==
--- OUTSIDE RECORDS SUMMARY | 2024-07-29 12:13 | XMS_ITS | Clinical Summary ---
Author Organization [employer] Address [address] [place] [address] [address] [place] [address] Care Team Providers Care Machine Operator Name Role Phone Unavailable Primary Care Provider [...] Most Recently Relevant to Health Maintenance Insurance [facility] MEDICAID STAND ADULT
--- OUTSIDE RECORDS SUMMARY | 2024-07-29 12:13 | XMS_ITS | Patient Health Record ---
Author Organization [facility] Address [address] [place] [address] Care Team Providers Care Measurement Coordinator Name Role Phone OscarclaraLolly Primary Care Provider Unavailab Scott Gaming Unavailable [phone] Allergies Allergen (clinical drug ingredient) Drug/Non Drug [...] Problem Status W/U Status Risk Notes Problem [id number] Encounter for screening for malignant neoplasm of colon (Z12.11) Active confirmed Problem 14706133 Right lower quadrant pain (R10.31) Active confirmed Problem 49191954 Irritable bowel syndrome without diarrhea (K58.9) Active confirmed Problem 73364546 Other irritable bowel syndrome (K58.8) Active confirmed Problem 96078898 Pelvic pain (R10.2) Active confirmed Problem 90047319 Urinary tract infection without hematuria, site unspecified [...] BLUE BC[employer] PROFESSION[employer] L CLAIMS [address] [place] [address] [id number] GUSTAVO FLAHERTY Self - patient is the insured 3 day [employer] [facility] [address] [address] [place], [place] [id number] GUSTAVO FLAHERTY Self - patient is the insured [place] [address] [place] [address] [id number] GUSTAVO FLAHERTY Self - patient is the insured 1 Medical (General) History Medical History History ICD Code Asthma in association with a URI--uses i nhalers prn Denies [place],DM,CVA,renal disease Irritable bowel syndrome/lac tose intolerance-neg. celiac disease labs in 2012 Negative screening colonoscopy in 5 E. coli UTI in December of 2020 Surgical History Surgery Date(Month/Year) Tonsillectomy [place] teeth
[2024-08-19 07:29] VITALS: BMI 28.2
--- NOTE | 2024-09-05 15:03 | P.CONAN_ITS ---
Documented by User: Alicia Ferguson NP 09/05/24 15:04 HPI - Anesthesia Eval Consult details Narrative: 64yo F for Left Cataract Extraction IOL Insertion Right eye 08/26/24: Fent 50, Midaz 2 PMFSH Active Problems Active Problems: All Active Problems Microscopic hematuria (Acute) Past Medical History Medical History IBS (irritable bowel syndrome) High cholesterol Microscopic hematuria Colitis HTN (hypertension) Family History Family history of problems with anesthesia: No Surgical History Surgical History History of surgery of uterus H/O colonoscopy History of tonsillectomy History of Problems with Anesthesia: Yes Social History Social History Are you a primary child care associate teacher to a significant other at home: No Patient Tobacco Use Status: Never used Tobacco Substance Use Frequency: Occasionally Are you DNR?: No Advance Directives: No Advance Directives Information Provided: Yes Advance Directives on File: No Patient : No : No Meds Allergies Allergy/AdvReac Type Severity Reaction Status Date / Time Sulfa (Sulfonamide Allergy Mild rash Verified 08/26/24 09:02 Antibiotics) codeine Allergy Vomiting Verified 08/26/24 09:02 Home Medications ?Medication ?Instructions ?Recorded ?Confirmed ?Last Taken ?Type atorvastatin 10 mg tablet 10 mg PO BEDTIME 11/04/22 08/19/24 Unknown History Bifidobacterium longum 10 million 10 cell PO DAILY 08/19/24 08/19/24 Unknown History cell capsule (Align (B.longum)) losartan 50 mg tablet 50 mg PO DAILY 08/19/24 08/19/24 Unknown History Exam Height,Weight and Vital Signs: Height 5 ft 6 in Weight 79.379 kg Assessment and Plan Assessment Anesthesia Assessment: Chart Reviewed Final Anesthetic Review Family History of Problems with Anesthesia: No History of Problems with Anesthesia: Yes Documented by User: Brittany Hoover MD 09/09/24 08:20 PMF Past Medical History Medical History IBS (irritable bowel syndrome) High cholesterol Microscopic hematuria Colitis HTN (hypertension) Surgical History Surgical History History of surgery of uterus H/O colonoscopy History of tonsillectomy Social History Social History Are you a primary child care associate teacher to a significant other at home: No Patient Tobacco Use Status: Never used Tobacco Substance Use Frequency: Occasionally Are you DNR?: No Advance Directives: No Advance Directives Information Provided: Yes Advance Directives on File: No Patient : No : No Meds Allergies Allergy/AdvReac Type Severity Reaction Status Date / Time Sulfa (Sulfonamide Allergy Mild rash Verified 08/26/24 09:02 Antibiotics) codeine Allergy Vomiting Verified 08/26/24 09:02 Home Medications ?Medication ?Instructions ?Recorded ?Confirmed ?Last Taken ?Type atorvastatin 10 mg tablet 10 mg PO BEDTIME 11/04/22 08/19/24 Unknown History Bifidobacterium longum 10 million 10 cell PO DAILY 08/19/24 08/19/24 Unknown History cell capsule (Align (B.longum)) losartan 50 mg tablet 50 mg PO DAILY 08/19/24 08/19/24 Unknown History Exam Airway Mallampati Class: II TM Dist: >3cm Neck ROM: Full Heart: rrr Lungs: cta Assessment and Plan Assessment Anesthesia Assessment: Anesthesia Plan Discussed Final Anesthetic Review NPO: Yes ASA Class: II Final Preanesthetic Review: No Changes in Pt Med Stat, Meds/Allgs Chart Reviewed, Consent Obtained/Reviewed and Anes Risks/Benef Reviewed Patient Risk: Intermediate Procedure Risk: Low Anesthetic Plan Anesthetic Plan: MAC: Disposition: Standard PACU
[2024-09-09 07:48] VITALS: BP 136/65; PULSE 76; RESP 16; TEMP 36.3; O2SAT 96
[2024-09-09] MEDS: Tetracaine HCl/PF 0.5% Oph Sol 4 ML DROPS 1 DROP EYE-LEFT (07:51)
[2024-09-09] MEDS: Cyclopentolate 1 % Ophth Sol 2 ML DRPBTL 1 DROP EYE-LEFT ×3 (07:51→08:00)
[2024-09-09] MEDS: Tropicamide 1 % Ophth Sol 3 ML BTL 1 DROP EYE-LEFT ×3 (07:52→08:00)
[2024-09-09] MEDS: Ketorolac Tromethamine 0.5% Op 5 ML DROPS 1 DROP EYE-LEFT ×3 (07:53→08:01)
[2024-09-09] MEDS: Phenylephrine HCL 2.5% Oph SoL 2 ML BOTTLE 1 DROP EYE-LEFT ×3 (07:55→08:02)
[2024-09-09] MEDS: Lactated Ringers 500 ML 80 ML IVCONT (07:55)
--- NOTE | 2024-09-09 08:46 | MHC.SHP ---
Pre-Procedural Eval Section A - 24 Hr Update-Section A only Date of Service: 09/09/24 The patient is an INPATIENT: No Changes since office visit: No Cold of Flu in the past 2 weeks, No New Medical Problems, No Changes in Medication and No Patient answered all questions The patient has been examined within 24 hours of the surgical procedure. The History & Physical has been completed within 30 days and I have reviewed it.: Yes Section B - Complete if H&P > 30 days Chief Complaint: Age-related nuclear cataract, left eye Allergies: Allergies Allergy/AdvReac Type Severity Reaction Status Date / Time Sulfa (Sulfonamide Allergy Mild rash Verified 08/26/24 09:02 Antibiotics) codeine Allergy Vomiting Verified 08/26/24 09:02 Plan Diagnosis/Plan: Unchanged I have reviewed the history and physical and performed a pertinent physical examination on my patient. No changes have occurred unless specified. Time Spent With Patient Time: Total time managing care of this patient today ____ minutes.
--- NOTE | 2024-09-09 08:46 | HO.PNOPHT ---
Ophthalmology Procedure Procedure Date of Service: 09/09/24 Ophthalmology Viscoelastic: Healon Duet Dual Pack Pro Ophthalmology Lenses: IOL Acrysof MP - MA60AC (19.5) Procedure Notes: PREOPERATIVE DIAGNOSIS: Decreased visual acuity left eye secondary to cataract POSTOPERATIVE DIAGNOSIS: Same PROCEDURE: Left cataract extraction with intraocular lens insertion SURGEON: Dustin Soto M.D. ANESTHESIA: Topical/MAC ESTIMATED BLOOD LOSS: None COMPLICATIONS: None After obtaining informed consent, the patient was brought to the operation room suite and placed in the supine position. After adequate sedation per anesthesia, topical drops of Tetracaine were given to the left eye. The eye was then prepped and draped in the usual sterile fashion. The operating room microscope was then positioned over the operative eye and a lid speculum placed. A paracentesis was created. Viscoelastic was then instilled into the anterior chamber. A three plane incision was then created temporally, utilizing a 2.85 mm keratome. Capsulotomy forceps were then utilized to create a circular tear capsulotomy. Hydrodissection and hydrodelineation were carried out until adequate mobilization of the nucleus occurred. Phacoemulsification was then utilized to remove the dense central nucleus followed by removal of the cortical material utilizing the automated aspiration irrigation unit. Viscoat elastic was instilled into the posterior capsular bag followed by placement of a posterior chamber intraocular lens without difficulty. The residual Viscoat elastic was then removed utilizing the automated IA machine. The wound was check and found to be watertight. The patient tolerated the procedure well and the lid speculum was removed. Intracameral injection of Vigamox 0.1 mL followed by a subtenon injection of Kenalog-40 0.2 mL were administered. The patient will be seen in the a.m.
[2024-09-09 09:12] VITALS: BP 124/61; PULSE 64; RESP 16; TEMP 36.5; O2SAT 100
== END 2024-09-09 09:28 | disposition home or self-care (01) ==
PROVIDERS: PCP Internal Medicine; Visit Provider Ophthalmology
PROC: (CPT 66985; principal; 2024-09-09 09:00)
DX: H25.12 Age-related nuclear cataract, left eye (principal); H52.4 Presbyopia; H18.413 Arcus senilis, bilateral; H35.09 Other intraretinal microvascular abnormalities; H35.363 Drusen (degenerative) of macula, bilateral; I10 Essential (primary) hypertension; E78.00 Pure hypercholesterolemia, unspecified; Z79.899 Other long term (current) drug therapy; Z88.2 Allergy status to sulfonamides; Z88.5 Allergy status to narcotic agent
CPT/HCPCS: 66984; J2250; J3301; V2630